=== PATIENT | female | born 1995 | race Two or more races ===

== ENCOUNTER 2018-11-07 02:21 | Emergency (ER) | payer BC, MEDICAID ==
[~2018-11-07] VITALS: Ht 154.9 cm; Wt 54.4 kg
--- NOTE | 2018-11-07 02:35 | NUR ---
Received pt. in bed 3 sitting on the gurney. A/O x 4 and stated she thinks she has a yeast infection and did not specify to this financial writer for how long. Awaiting to be seen by Dr. Phan.
[2018-11-07] MEDS ORDERED: FLUCONAZOLE 100 MG TABLET PO ONE (03:30)
[2018-11-07] MEDS ORDERED: FLUCONAZOLE 100 MG TABLET ONE (03:41)
--- NOTE | 2018-11-07 03:43 | NUR ---
IV removed. Catheter intact and site benign. Pressure and 4x4 gauze applied to site. No bleeding noted.
== END 2018-11-07 03:49 | disposition home or self-care (01) ==
LOC: ER 02:30
DX: B37.3 Candidiasis of vulva and vagina (principal); Z59.0 Homelessness
CPT/HCPCS: A4663

== ENCOUNTER 2020-07-06 20:35 | Emergency (ER) | payer BC, MEDICAID ==
[~2020-07-06] VITALS: Ht 160 cm; Wt 49.9 kg
--- NOTE | 2020-07-06 21:00 | NUR ---
Patient BIB RA accompanied by [employer] handcuff to [place]. Patient refusing to answer any question, uncooperative. Brought in due to running into traffic. Placed in room 4A.
[2020-07-06 21:09] LABS: BASOPHILS % (AUTO) 0.3 % (0.0-2.0); EOSINOPHILS % (AUTO) 0.7 % (0.0-7.0); HEMATOCRIT 35.5 % (31.2-41.9); HEMOGLOBIN 11.8 g/dL (10.9-14.3); LYMPHOCYTES # (AUTO) 0.7 K/uL (20.0-40.0); LYMPHOCYTES % (AUTO) 11.5 % (20.5-51.5); MEAN CORPUSCULAR HEMOGLOBIN 30.5 uug (24.7-32.8); MEAN CORPUSCULAR HGB CONC 33 g/dL (32.3-35.6); MEAN CORPUSCULAR VOLUME 91.6 fL (75.5-95.3); MONOCYTES # (AUTO) 0.8 K/uL (2.0-10.0); MONOCYTES % (AUTO) 14.1 % (0.0-11.0); NEUTROPHILS # (AUTO) 4.4 K/uL (1.8-8.9); NEUTROPHILS % (AUTO) 73.4 % (38.5-71.5); PLATELET COUNT (AUTO) 243 K/uL (179-408); RED BLOOD CELL COUNT(AUTO) 3.88 MIL/uL (3.63-4.92); WHITE BLOOD COUNT (AUTO) 5.9 K/uL (3.8-11.8)
[2020-07-06 21:21] LABS: ALANINE AMINOTRANSFERASE 17 U/L (14-59); ALKALINE PHOSPHATASE 79 U/L (50-136); ASPARTATE AMINOTRANSFERASE 20 U/L (15-37); BILIRUBIN,DIRECT 0.2 mg/dL (0.0-0.2); BILIRUBIN,TOTAL 0.6 mg/dL (0.2-1.0); CARBON DIOXIDE 24 mmol/L (21-32); CHLORIDE 99 mmol/L (98-107); CREATININE 0.7 mg/dL (0.6-1.3); GLUCOSE 107 mg/dL (74-106); POTASSIUM 3.2 mmol/L (3.5-5.1); TOTAL PROTEIN, SERUM 7.5 g/dL (6.4-8.2); UREA NITROGEN, BLOOD 11 mg/dL (7-18)
[2020-07-06 21:22] LABS: ETHANOL < 3 MG/DL (0-0)
[2020-07-06 21:23] LABS: ACETAMINOPHEN < 2.0 ug/mL (10-30)
[2020-07-06] MEDS ORDERED: OLANZAPINE 10 MG VIAL IM ONE ×2 (21:45→21:58)
--- NOTE | 2020-07-06 22:02 | NUR ---
Patient placed on 5150 DTS, DTO and GD hold by [employer].
--- NOTE | 2020-07-06 23:30 | NUR ---
Female nursing supervisor word processing and ER staff members unable to insert in and out joseph ordered by DR Adkins due to patient being uncooperative.
--- NOTE | 2020-07-07 01:00 | NUR ---
Patient sleeping, calm. No distress noted, restraint released.
--- NOTE | 2020-07-07 07:12 | NUR ---
PT IS SLEEPING IN BED. NO S/S OF ACUTE DISTRESS AT THIS TIME.
--- NOTE | 2020-07-07 09:08 | NUR ---
This SW informed by ED RN Kevin about patient. Patient is a 25 year old female brought in by police last night, on a 5150 hold for danger to self. Per ED physician's notes, patient's mother called 911 after patient threatened to run into traffic. This SW called instructor ballroom dancing Clemencia Wilson [phone] to request a crisis evaluation. Clemencia was not available, and this SW left Clemencia a voicemail message informing her that a crisis evaluation was needed for this patient. ED RN Kevin informed that this SW called instructor ballroom dancing.
[2020-07-07 11:03] LABS: *BILIRUBIN,URIN NEGATIVE (NEGATIVE); *CLARITY,URINE SLIGHTLY CLOUDY (CLEAR); *COLOR,URINE YELLOW (YELLOW); *KETONES,URINE 2+ (NEGATIVE); *UROBILINOGEN,URINE 0.2 E.U./dl (NORMAL); LEUKOCYTE ESTERASE ,URINE NEGATIVE (NEGATIVE); NITRITE, URINE NEGATIVE (NEGATIVE); PH,URINE 5.5 (5.0-8.0); UGLUCOSE NEGATIVE (NEGATIVE)
[2020-07-07 11:06] LABS: *BLOOD, URINE TRACE (NEGATIVE); *URINE HCG, QUAL NEG (NEGATIVE)
[2020-07-07 11:20] LABS: *AMPHETAMINE, URINE POSITIVE (NEGATIVE); *CANNABINOID, URINE NEGATIVE (NEGATIVE); *COCCAINE, URINE NEGATIVE (NEGATIVE); *OPIATE, URINE NEGATIVE (NEGATIVE); *PHENCYCLIDINE SCREEN,URINE NEGATIVE (NEGATIVE)
[2020-07-07 13:14] LABS: BACTERIA,URINE FEW /HPF (NONE SEEN); RBC,URINE 0-3 /HPF (0-3); WBC,URINE 0-3 /HPF (0-3)
[2020-07-07 13:15] LABS: SQUAMOUS EPITHELIAL CELL,UR MODERATE /HPF (NONE SEEN)
--- NOTE | 2020-07-07 13:38 | NUR ---
CRISIS MAIL PROCESSING EQUIPMENT MECHANIC VICTORIA TALKED TO PT's SISTER SEB ABOUT PT's PLACEMENT TO [facility].
--- NOTE | 2020-07-07 14:07 | NUR ---
This SW faxed clinicals to Terrance at [facility], fax # [phone]. Pending review of clinicals, patient will be transferred to [facility] for voluntary psychiatric admission.
--- NOTE | 2020-07-07 17:16 | NUR ---
SILK OPENER SHERRI CONTACTED TO [facility], THEY ARE STILL WORKING ON PT's TRANSFER AND ARE GOING TO NOTIFY US WHEN BED WILL BE AVAILABLE. PT IS RESTING IN BED COMFORTABLY . NO S/S OF ACUTE DISTRESS AT THIS TIME.
--- NOTE | 2020-07-07 17:19 | NUR ---
[phone] IS THE NUMBER TO CONTACT [facility] FOR PT TRANSFER.
[2020-07-07] MEDS ORDERED: POTASSIUM CHLORIDE 20 MEQ TAB.PRT.SR PO ONE (19:15)
[2020-07-07] MEDS ORDERED: POTASSIUM CHLORIDE 20 MEQ TAB.PRT.SR ONE (19:20)
--- NOTE | 2020-07-07 19:45 | NUR ---
Proof of potassium replacement faxed to to [facility], charge nurse from [facility] called but was not able to take my call at this time, will try again
--- NOTE | 2020-07-07 19:50 | NUR ---
Patient given potassium replacement and sandwich at this time
--- NOTE | 2020-07-07 22:00 | NUR ---
Informed by Charge Nurse Merissa that [facility] does not have a nurse available to take this patient
--- NOTE | 2020-07-08 04:00 | NUR ---
Patient noted resting in bed, no signs of acute distress
--- NOTE | 2020-07-08 07:09 | NUR ---
patient noted ambulating to restroom at this time, no behaviors noted, given sandwich at this time
--- NOTE | 2020-07-08 07:12 | NUR ---
RECIEVED PT IN BED, AWAKE, AXOX4, PT AWARE THAT THE PLAN FOR HER IS TO BE TRANSFERED TO [facility].
--- NOTE | 2020-07-08 08:27 | NUR ---
CALLED [facility] AT [phone], TO FOLLOW UP ON THE PT ANSELMO, WAS TOLD THAT SINCE THE PT WAS ONCE ON HOLD BY [employer], [facility] CANNOTACEPT THE PT. CALLED PEREZ RITCHIE AND INFORMED HER OF THIS CONVERSATION
--- NOTE | 2020-07-08 08:49 | NUR ---
URVASHI RITCHIE CALLED AND SAID THAT THE CASE IS ARRANGED WITH [facility], THEY WILL CALL FOR REPORT.
--- NOTE | 2020-07-08 09:11 | NUR ---
CALLED REPORT AT [phone], GAVER REPORT TO YASMINE.
--- NOTE | 2020-07-08 10:10 | NUR ---
[facility] AT BEDSIDE.
--- NOTE | 2020-07-08 10:18 | NUR ---
PT TRANSFERED TO [facility] IN STABLE CONDITION. PT BEING APPRECIATIVE OF THE FACT SHE IS BEING TRANSFERED TO GET HELP.
== END 2020-07-08 10:19 ==
LOC: ER 20:44
DX: R45.851 Suicidal ideations (principal); U07.1 COVID-19; E87.6 Hypokalemia; Z59.0 Homelessness; F20.9 Schizophrenia, unspecified; F15.10 Other stimulant abuse, uncomplicated; Z82.49 Family history of ischemic heart disease and other diseases of the circulatory system
CPT/HCPCS: 36415; 71045; 84703; 85025; A4663; C1758; G0480; J2358